=== PATIENT | female | born 1940 | race Caucasian/White ===

== ENCOUNTER 2016-05-13 13:00 | Outpatient (RCR) | payer OTHER ==
[~2016-05-13 13:00] MED LIST: ASPIRIN-LOW81 MG PO; COENZYME Q10 10 MG PO; COENZYME Q101 EA PO; FOSAMAX 70MG PO; FOSAMAX70 MG PO; LEVOTHYROXINE50 MCG PO; ONE A DAY MVI PO; VITAMIN C500 M1 PO; VITAMIN D1000 UNI1 PO
== END 2016-06-08 | disposition home or self-care (01) ==
LOC: PTY 13:00
DX: M41.26 Other idiopathic scoliosis, lumbar region (principal)
CPT/HCPCS: 97110; G0283

== ENCOUNTER 2016-06-10 12:30 | Outpatient (RCR) | payer OTHER | END 2016-07-06 | disposition home or self-care (01) | LOC: PTY 12:30 | DX: M41.26 Other idiopathic scoliosis, lumbar region (principal); I10 Essential (primary) hypertension; M81.0 Age-related osteoporosis without current pathological fracture; Z86.73 Personal history of transient ischemic attack (TIA), and cerebral infarction without residual deficits; Z85.42 Personal history of malignant neoplasm of other parts of uterus; Z96.611 Presence of right artificial shoulder joint ==

== ENCOUNTER 2016-06-24 14:00 | Outpatient (RCR) | payer OTHER | END 2016-07-06 | disposition home or self-care (01) | LOC: PTY 14:00 | DX: M25.511 Pain in right shoulder (principal); Z96.611 Presence of right artificial shoulder joint; Z88.0 Allergy status to penicillin; I10 Essential (primary) hypertension; Z86.73 Personal history of transient ischemic attack (TIA), and cerebral infarction without residual deficits; M81.0 Age-related osteoporosis without current pathological fracture; Z85.42 Personal history of malignant neoplasm of other parts of uterus; M19.90 Unspecified osteoarthritis, unspecified site; M41.26 Other idiopathic scoliosis, lumbar region ==

== ENCOUNTER 2016-07-19 13:00 | Outpatient (RCR) | payer OTHER | END 2016-08-06 | disposition home or self-care (01) | LOC: PTY 13:00 | DX: Z47.1 Aftercare following joint replacement surgery (principal); M41.26 Other idiopathic scoliosis, lumbar region; I10 Essential (primary) hypertension; M81.0 Age-related osteoporosis without current pathological fracture; Z86.73 Personal history of transient ischemic attack (TIA), and cerebral infarction without residual deficits; Z85.42 Personal history of malignant neoplasm of other parts of uterus; Z96.611 Presence of right artificial shoulder joint; Z88.0 Allergy status to penicillin ==

== ENCOUNTER 2016-08-10 12:50 | Outpatient (RCR) | payer OTHER | END 2016-09-05 | disposition home or self-care (01) | LOC: PTY 12:50 | DX: M41.26 Other idiopathic scoliosis, lumbar region (principal) | CPT/HCPCS: 97110; 97140; G0283 ==

== ENCOUNTER 2016-09-07 12:45 | Outpatient (RCR) | payer OTHER | END 2016-10-06 | disposition home or self-care (01) | LOC: PTY 12:45 | DX: M41.26 Other idiopathic scoliosis, lumbar region (principal); Z96.611 Presence of right artificial shoulder joint | CPT/HCPCS: 97110; 97140; G0283 ==

== ENCOUNTER 2016-10-11 13:54 | Outpatient (RCR) | payer OTHER | END 2016-11-05 | disposition home or self-care (01) | LOC: PTY 13:54 | DX: M25.511 Pain in right shoulder (principal) | CPT/HCPCS: 97110; 97140; G0283 ==

== ENCOUNTER 2016-11-15 10:00 | Outpatient (RCR) | payer OTHER | END 2016-12-06 | disposition home or self-care (01) | LOC: PTY 10:00 | DX: M25.511 Pain in right shoulder (principal) | CPT/HCPCS: 97110; 97140; G0283 ==

== ENCOUNTER → 2017-01-06 | Outpatient (RCR) | payer OTHER | END | disposition home or self-care (01) | LOC: PTY 12-23 14:00 | DX: M25.511 Pain in right shoulder (principal); Z96.611 Presence of right artificial shoulder joint | CPT/HCPCS: 97110; 97140; G0283 ==

== ENCOUNTER 2017-02-03 14:00 | Outpatient (RCR) | payer OTHER | END 2017-02-05 | disposition home or self-care (01) | LOC: PTY 14:00 | DX: M25.511 Pain in right shoulder (principal); Z96.611 Presence of right artificial shoulder joint | CPT/HCPCS: 97110; 97140; G0283 ==

== ENCOUNTER 2017-05-16 14:00 | Outpatient (RCR) | payer OTHER | END 2017-06-08 | disposition home or self-care (01) | LOC: PTY 14:00 | DX: S12.100D Unspecified displaced fracture of second cervical vertebra, subsequent encounter for fracture with routine healing (principal) | CPT/HCPCS: 97110; 97140; 97161; G0283 ==

== ENCOUNTER 2017-06-21 10:30 | Outpatient (RCR) | payer OTHER | END 2017-07-06 | disposition home or self-care (01) | LOC: PTY 10:30 | DX: S12.100D Unspecified displaced fracture of second cervical vertebra, subsequent encounter for fracture with routine healing (principal); Z85.42 Personal history of malignant neoplasm of other parts of uterus; M19.90 Unspecified osteoarthritis, unspecified site; Z90.710 Acquired absence of both cervix and uterus; M41.9 Scoliosis, unspecified | CPT/HCPCS: 97110; 97140; G0283 ==

== ENCOUNTER 2017-07-26 13:50 | Outpatient (RCR) | payer OTHER | END 2017-08-06 | disposition home or self-care (01) | LOC: PTY 13:50 | DX: S12.100D Unspecified displaced fracture of second cervical vertebra, subsequent encounter for fracture with routine healing (principal); Z85.42 Personal history of malignant neoplasm of other parts of uterus; M19.90 Unspecified osteoarthritis, unspecified site; Z90.710 Acquired absence of both cervix and uterus; M41.9 Scoliosis, unspecified ==

== ENCOUNTER 2017-08-10 12:50 | Outpatient (RCR) | payer OTHER | END 2017-09-05 | disposition home or self-care (01) | LOC: PTY 12:50 | DX: S12.100D Unspecified displaced fracture of second cervical vertebra, subsequent encounter for fracture with routine healing (principal) ==

== ENCOUNTER 2017-09-08 13:56 | Outpatient (RCR) | payer OTHER | END 2017-10-06 | disposition home or self-care (01) | LOC: PTY 13:56 | DX: S12.100D Unspecified displaced fracture of second cervical vertebra, subsequent encounter for fracture with routine healing (principal); M19.90 Unspecified osteoarthritis, unspecified site; Z90.710 Acquired absence of both cervix and uterus; M41.9 Scoliosis, unspecified; Z85.42 Personal history of malignant neoplasm of other parts of uterus ==